=== PATIENT | male | born 1960 ===

== ENCOUNTER 2024-05-26 12:49 | Outpatient (RCR) | payer OTHER, SELFPAY | END 2024-05-26 23:59 | disposition home or self-care (01) | LOC: RST 12:49 | PROVIDERS: ATTENDING PHYSICIAN Student in an Organized Health Care Education/Training Program | DX: S06.301D Unspecified focal traumatic brain injury with loss of consciousness of 30 minutes or less, subsequent encounter (principal); C71.9 Malignant neoplasm of brain, unspecified; R41.841 Cognitive communication deficit; R41.840 Attention and concentration deficit; Z98.890 Other specified postprocedural states | CPT/HCPCS: 96125; 97129; 97130 ==

== ENCOUNTER 2024-06-23 10:49 | Outpatient (RCR) | payer BC, SELFPAY | END 2024-06-23 23:59 | disposition home or self-care (01) | LOC: RST 10:49 | PROVIDERS: ATTENDING PHYSICIAN Student in an Organized Health Care Education/Training Program | DX: S06.301D Unspecified focal traumatic brain injury with loss of consciousness of 30 minutes or less, subsequent encounter (principal); C71.9 Malignant neoplasm of brain, unspecified; R41.841 Cognitive communication deficit; R41.840 Attention and concentration deficit; Z98.890 Other specified postprocedural states | CPT/HCPCS: 97129; 97130 ==

== ENCOUNTER 2024-07-03 15:10 | Outpatient (RCR) | payer BC, SELFPAY | END 2024-07-03 23:59 | disposition home or self-care (01) | LOC: RST 15:10 | PROVIDERS: ATTENDING PHYSICIAN Student in an Organized Health Care Education/Training Program | DX: S06.301D Unspecified focal traumatic brain injury with loss of consciousness of 30 minutes or less, subsequent encounter (principal); C71.9 Malignant neoplasm of brain, unspecified; R41.841 Cognitive communication deficit; R41.840 Attention and concentration deficit; Z98.890 Other specified postprocedural states | CPT/HCPCS: 97129; 97130 ==